=== PATIENT | female | born 1950 | race Caucasian/White ===

== ENCOUNTER → 2016-11-13 | Outpatient (CLI) | payer BC, MEDICARE ==
--- NOTE | 2016-11-13 10:15 | RAD ---
DATE: 11/13/2016 EXAM: DIGITAL SCREEN BILAT W/CAD HISTORY: Routine screening COMPARISON: 12/04/2014 This study was interpreted with the benefit of Computerized Aided Detection (CAD). The breast parenchyma is primarily fatty replaced. FINDINGS: No new or enlarging breast densities are seen. Benign type calcifications are again noted. No suspicious microcalcifications have developed. IMPRESSION: Stable mammograms without evidence of malignancy. BI-RADS CATEGORY: 2 BENIGN FINDING(S) RECOMMENDED FOLLOW-UP: 12M 12 MONTH FOLLOW-UP PQRS compliance statement: Patient information was entered into a reminder system with a target due date for the next mammogram. Mammography is a sensitive method for finding small breast cancers, but it does not detect them all and is not a substitute for careful clinical examination. A negative mammogram does not negate a clinically suspicious finding and should not result in delay in biopsying a clinically suspicious abnormality. "Our facility is accredited by the [employer] Mammography [employer]."
== END | disposition home or self-care (01) ==
LOC: MAMMO 08:48
PROVIDERS: ATTEND Family Medicine
DX: Z12.31 Encounter for screening mammogram for malignant neoplasm of breast (principal)
CPT/HCPCS: G0202; 77067

== ENCOUNTER → 2018-01-15 | Outpatient (CLI) | payer MEDICARE, BC ==
--- NOTE | 2018-01-15 16:25 | RAD ---
DATE: 01/15/2018 EXAM: MAMMO AICHA SCREENING BILATERAL HISTORY: Routine screening COMPARISON: 12/04/2014 and 11/13/2016 mammographic exams This study was interpreted with the benefit of Computerized Aided Detection (CAD). Breast Density: FATTY The breast parenchyma is primarily fatty replaced. Breast parenchyma level density A. FINDINGS: Minimal benign calcification present. No suspicious calcification cluster. No mass or distortion. IMPRESSION: Normal BI-RADS CATEGORY: 2 BENIGN FINDING(S) RECOMMENDED FOLLOW-UP: 12M 12 MONTH FOLLOW-UP PQRS compliance statement: Patient information was entered into a reminder system with a target due date in one year for the next mammogram. Mammography is a sensitive method for finding small breast cancers, but it does not detect them all and is not a substitute for careful clinical examination. A negative mammogram does not negate a clinically suspicious finding and should not result in delay in biopsying a clinically suspicious abnormality. "Our facility is accredited by the [employer] Mammography [employer]."
== END | disposition home or self-care (01) ==
LOC: MAMMO 15:11
PROVIDERS: ATTEND Family Medicine
DX: Z12.31 Encounter for screening mammogram for malignant neoplasm of breast (principal)
CPT/HCPCS: 77063; 77067

== ENCOUNTER → 2018-02-22 | Day surgery (SDC) | payer MEDICARE, BC ==
[~2018-02-22] MED LIST: AMLO5TAB4 PO; ASPI-630 PO; CARV25TA2 PO; CRESTOR10 MG PO; GLYCOPYRROLATE 1 MG/5 ML VIAL. ONE; HYDROmorphone 2 MG/ML VIAL IV PRN; INSU100I13 SQ; INSU100V SQ; IV RINGERS,LACTATED 1000ML 1,000 ML IV SCH; LIDOCAINE 1% PF 2 ML VIAL. ID PRN; LIDOCAINE 1% PF 2 ML VIAL. ONE; LISI-338 PO; MORPHINE SULFATE 2 MG/ML VIAL. IV PRN; MYCO360T PO; ONDANSETRON PF 4 MG/2 ML VIAL. IV PRN; OXYB10TA7 PO; PROCHLORPERAZINE 10 MG/2 ML VIAL. IV PRN; PROPOFOL 20 ML IV ONE; TACR1CAP4 PO; fentaNYL PF VIAL 100 MCG/2 ML VIAL IV PRN
--- NOTE | 2018-02-22 09:46 | PDOC2 ---
CONSULT Date of Consult Date of Consult DATE: 02/22/18 TIME: 09:40 Reason for Consult Reason for Consult: CRC screening History of Present Illness Reason for Visit: 68 yo female seen for colorectal cancer screening. Her bowel habits are regular without diarrhea or constipation. Weight and appetite are stable. No melena and/ or hematochezia is noted. Family history is positive for colon cancer with an older sister. Patient is s/p renal transplant five years ago. Last colonosocpy over a decade ago was unrevealing. She otherwise is without additional complaints. Past Medical History Cardiovascular: HTN Renal/: Other (s/p kidney transplant) Endocrine: Diabetes Past Surgical History Past Surgical History: Cataract Removal Family History Family History: Cancer (colon sister), Diabetes, Hypertension Social History No ALCOHOL: social Current Medications Current Medications Current Medications Ondansetron HCl (Zofran) 4 mg PRN Q6HRS PRN IV NAUSEA/VOMITING; Start at 07:00; Stop 02/23/18 at 06:59 Fentanyl Citrate (Fentanyl 2ml Vial) 25 mcg PRN Q5MIN PRN IV MILD PAIN; Start 02/22/18 at 07:00; Stop 02/23/18 at 06:59 Fentanyl Citrate (Fentanyl 2ml Vial) 50 mcg PRN Q5MIN PRN IV MODERATE TO SEVERE PAIN; Start 02/22/18 at 07:00; Stop 02/23/18 at 06:59 Morphine Sulfate (Morphine Sulfate) 1 mg PRN Q10MIN PRN IV SEVERE PAIN; Start 02/22/18 at 07:00; Stop 02/23/18 at 06:59 Ringer's Solution 1,000 ml @ 30 mls/hr Q24H IV Last administered on at 09:12; Start 02/22/18 at 07:00; Stop 02/22/18 at 18:59 Lidocaine HCl (Xylocaine-Mpf 1% 2ml Vial) 2 ml PRN 1X PRN ID IV START; Start 02/22/18 at 07:00; Stop 02/23/18 at 06:59 Hydromorphone HCl (Dilaudid) 0.5 mg PRN Q10MIN PRN IV SEV PAIN, Second choice; Start 02/22/18 at 07:00; Stop 02/23/18 at 06:59 Prochlorperazine Edisylate (Compazine) 5 mg PACU PRN PRN IV NAUSEA, MRX1; Start 02/22/18 at 07:00; Stop 02/23/18 at 06:59 Propofol 40 ml @ As Directed STK-MED ONCE IV ; Start 02/22/18 at 09:36; Stop 02/22/18 at 09:37; Status DC Lidocaine HCl (Xylocaine-Mpf 1% 2ml Vial) 2 ml STK-MED ONCE .ROUTE ; Start at 09:36; Stop 02/22/18 at 09:37; Status DC Active Scripts Active Reported Humalog (Insulin Lispro) 100 Unit/1 Ml Vial 100 Unit SQ AC SLIDING SCALE Lantus Solostar (Insulin Glargine,Hum.rec.anlog) 100 Unit/1 Ml Insuln.pen 25 Unit SQ QHS Lisinopril 5 Mg Tablet 5 Mg PO DAILY Ditropan Xl (Oxybutynin Chloride) 10 Mg Tab.er.24 10 Mg PO DAILY Aspirin 81 Mg Tab.chew 81 Mg PO DAY Crestor (Rosuvastatin Calcium) 10 Mg Tablet 10 Mg PO HS Norvasc (Amlodipine Besylate) 5 Mg Tablet 5 Mg PO DAILY Myfortic (Mycophenolate Sodium) 360 Mg Tablet.dr 360 Mg PO TID Prograf (Tacrolimus) 1 Mg Capsule 2 Cap PO BID Carvedilol 25 Mg Tablet 12.5 Mg PO BIDWMEALS Allergies Allergies: Coded Allergies: atorvastatin (Verified Allergy, Severe, 02/22/18) metformin (Verified Allergy, Severe, 02/22/18) Physical Exam General: Alert, Oriented X3 Lungs: Clear to auscultation Heart: Regular rate, Normal S1, Normal S2 Abdomen: Normal bowel sounds, Soft, No tenderness Vitals VITALS Vital Signs Date Time Temp Pulse Resp B/P (MAP) Pulse Ox O2 Delivery O2 Flow Rate FiO2 02/22/18 09:08 97.3 65 20 95 97.3 Assessment/Plan Assessment/Plan Colorectal cancer screening- with prior transplant and family hsitory of colon cancer, is warranted at this time. Risks and benefits discussed with patient who is willing to proceed MANUEL PACHECO MD Feb 22, 2018 09:46
[2018-02-22 10:34] VITALS: BP 182/74
--- NOTE | 2018-02-25 15:07 | PATHOLOGY ---
[facility] Accession Number: [id number] . 01 Material submitted: . SIGMOID COLON POLYP . 01 Clinical history: . Screening . 02 Diagnosis: Colon biopsy, sigmoid polyp: - Hyperplastic polyp. MBR/02/25/2018 . 02 Comment: There are no adenomatous changes or evidence of malignancy. 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 02 Electronically signed: . Peewee Salguero MD, Pathologist NPI- [id number] . 01 Gross description: . Received in formalin labeled "Sharif, Courtenay, sigmoid polyp," is a single segment of jamison soft tissue measuring 0.4 cm in maximum dimension. The specimen is entirely submitted in cassette A1. (TSD; 02/22/2018) TOB/TOB . 02 Pathologist provided ICD-10: K63.5 . 02 CPT . 629059 Specimen Comment: A courtesy copy of this report has been sent to Specimen Comment: [phone], . Specimen Comment: Report sent to / DR GARCIA Specimen Comment: A duplicate report has been generated due to demographic updates. Performed at: 01 [facility] [address] [facility] [address], [place] [id number] MD Benja Nicole MD Phone: [phone] Performed at: 02 [facility] [address] [place], [place] [id number] MD Peewee Salguero MD Phone: [phone]
== END | disposition home or self-care (01) ==
LOC: ENDOS 08:19
PROVIDERS: ATTEND Internal Medicine Gastroenterology
DX: Z12.11 Encounter for screening for malignant neoplasm of colon (principal); K63.5 Polyp of colon; K64.0 First degree hemorrhoids; I10 Essential (primary) hypertension; E11.9 Type 2 diabetes mellitus without complications; Z94.0 Kidney transplant status; Z83.3 Family history of diabetes mellitus; Z82.49 Family history of ischemic heart disease and other diseases of the circulatory system; Z72.89 Other problems related to lifestyle; Z79.899 Other long term (current) drug therapy; Z79.4 Long term (current) use of insulin; Z88.8 Allergy status to other drugs, medicaments and biological substances; Z80.0 Family history of malignant neoplasm of digestive organs
CPT/HCPCS: 45385; 88305; J2704; J3490; 45380

== ENCOUNTER → 2019-01-30 | Outpatient (CLI) | payer MEDICARE, BC ==
[2018-02-22 10:34] VITALS: BP 182/74
[~2019-01-30] MED LIST changes: -GLYCOPYRROLATE 1 MG/5 ML VIAL. ONE; -HYDROmorphone 2 MG/ML VIAL IV PRN; -INSU100V SQ; +INSU100V6 SQ; -IV RINGERS,LACTATED 1000ML 1,000 ML IV SCH; -LIDOCAINE 1% PF 2 ML VIAL. ID PRN; -LIDOCAINE 1% PF 2 ML VIAL. ONE; -MORPHINE SULFATE 2 MG/ML VIAL. IV PRN; -ONDANSETRON PF 4 MG/2 ML VIAL. IV PRN; -PROCHLORPERAZINE 10 MG/2 ML VIAL. IV PRN; -PROPOFOL 20 ML IV ONE; -fentaNYL PF VIAL 100 MCG/2 ML VIAL IV PRN
--- NOTE | 2019-01-30 11:17 | RAD ---
DATE: January 30, 2019 EXAM: DIGITAL SCREEN BILAT W/CAD HISTORY: Screening study. COMPARISON: 2016 and 2018. This study was interpreted with the benefit of Computerized Aided Detection (CAD). FINDINGS: Breast Density: FATTY The breast parenchyma is primarily fatty replaced. Breast parenchyma level density A.. There are no dominant suspicious masses, suspicious microcalcifications or evidence of architectural distortion. IMPRESSION: No mammographic indicators for malignancy. BI-RADS CATEGORY: 1 NEGATIVE RECOMMENDED FOLLOW-UP: 12M 12 MONTH FOLLOW-UP PQRS compliance statement: Patient information was entered into a reminder system with a target due date February 01, 2020 for the next mammogram. Mammography is a sensitive method for finding small breast cancers, but it does not detect them all and is not a substitute for careful clinical examination. A negative mammogram does not negate a clinically suspicious finding and should not result in delay in biopsying a clinically suspicious abnormality. "Our facility is accredited by the [employer] Mammography Program." The patient's breast density may affect the ability of mammography to detect breast cancer. There are 4 categories of breast density, A, B, C and D. Breast density A means that most of the breast tissue is replaced with adipose tissue and therefore is not dense. Breast density B means that the breast tissue is mildly dense and scattered. Breast density C means that the breast tissue is heterogeneously dense. Breast density D means that the breast tissue is very dense. Breast densities especially C and D may decrease the sensitivity of mammography to detect breast cancer. Therefore, the patient may benefit from 3-D breast mammography (3D breast tomography) as a part of their screening mammogram. Insurance may or may not pay for this additional imaging. The patient's breast density based on today's mammogram is category A.
== END | disposition home or self-care (01) ==
LOC: MAMMO 10:24
PROVIDERS: ATTEND Family Medicine
DX: Z12.31 Encounter for screening mammogram for malignant neoplasm of breast (principal)
CPT/HCPCS: 77067

== ENCOUNTER → 2020-02-05 | Outpatient (CLI) | payer MEDICARE, BC ==
[2018-02-22 10:34] VITALS: BP 182/74
[~2020-02-05] MED LIST changes: -TACR1CAP4 PO; +TACR1CAP5 PO
--- NOTE | 2020-02-05 16:22 | RAD ---
Examination: MG BILAT SCREEN+AICHA History: Reason: SCREENING MAMMOGRAM 3D / Spl. Instructions: / History: Comparison/Correlation: 01/30/2019, 01/15/2018, 11/13/2016, 12/04/2014 Technique: MLO and CC digital tomosynthesis (3D) images obtained. Radiologist reviewed these images on dedicated workstation. Findings: Breast Tissue Density B : There are scattered areas of fibroglandular density. There are no dominant masses, suspicious microcalcifications, or architectural distortion. IMPRESSION: No mammographic evidence of malignancy. Recommend routine screening. BI-RADS category 1: Negative. The images were reviewed with computer-aided detection. Patient information is entered into reminder system with a target due date for the next screening [facility] mogram. Mammography is the most sensitive method for finding small breast cancers, but it does not detect the m all and is not a substitute for careful clinical examination. A negative mammogram does not negate a clinically suspicious finding and should not result in delay in biopsying a clinically suspicious a bnormality. "Our facility is accredited by the [employer] Mammography Program." Electronically signed by: Landry Salamanca MD (02/05/2020 4:20 PM) [email or web address]
== END ==
LOC: MAMMO 10:55
PROVIDERS: ATTEND Family Medicine
DX: Z12.31 Encounter for screening mammogram for malignant neoplasm of breast (principal)
CPT/HCPCS: 77063; 77067

== ENCOUNTER → 2021-02-07 | Outpatient (CLI) | payer MEDICARE, BC ==
[2018-02-22 10:34] VITALS: BP 182/74
[~2021-02-07] MED LIST changes: -LISI-338 PO; +LISI5TAB15 PO
--- NOTE | 2021-02-08 12:18 | RAD ---
Bilateral digital screening 2-D and 3-D (digital breast tomosynthesis) mammogram: Reason for examination: Routine screening. Comparison: Mammograms from 02/05/2020 and 01/30/2019. Interpretation was made with the benefit of CAD. FINDINGS: Breast density: Category A. Breast tissue is almost entirely fatty. No suspicious breast mass, malignant appearing calcifications, or architectural distortion is seen. IMPRESSION: No evidence of malignancy. Assessment: BI-RADS 1. Negative. Recommendation: Routine screening mammograms. The patient will receive a letter with the results in the mail. Patient information will be entered i nto the mammography reminder system with a target recall date for the next mammogram. A reminder mariela er will be generated. Electronically signed by: Ginger Wilhelm MD (02/08/2021 12:16 PM) [email or web address]
== END ==
LOC: MAMMO 10:46
PROVIDERS: ATTEND Family Medicine
DX: Z12.31 Encounter for screening mammogram for malignant neoplasm of breast (principal)
CPT/HCPCS: 77063; 77067